=== PATIENT | female | born 1965 | race Two or more races ===

== ENCOUNTER 2020-03-17 14:55 | Emergency (ER) | payer MEDICARE, OTHER ==
[~2020-03-17] VITALS: Ht 165.1 cm; Wt 63.5 kg
[~2020-03-17 14:55] MED LIST: BACITRACIN ZIN1 EACH TOPIC
[2020-03-17] MEDS ORDERED: BUPROPION XL300 MG ORAL (15:27)
[2020-03-17] MEDS ORDERED: CETIRIZINE HCL10 M1 PO (15:27)
[2020-03-17] MEDS ORDERED: SUDAFED 12-HOU120 MG PO (15:27)
[2020-03-17 15:56] VITALS: BP 142/92
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
[2020-03-17] MEDS ORDERED: Methocarbamol 750mg tab ORAL ONE (16:30)
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
[2020-03-17] MEDS ORDERED: ROBAXIN-500MG ORAL (17:44)
[2020-03-17] MEDS ORDERED: IBUPROFEN600 M1 ORAL (17:44)
[2020-03-17 17:50] VITALS: BP 134/75
--- NOTE | 2020-03-17 17:50 | NUR ---
ED Nurse Note: Pt cleared by health care Provider for discharge. DC instructions/prescription was given and explained to pt and verbalized understanding of teachings. All medical deviecs such as ID band removed. Pt is AAO x4, ambulatory and left with all personal belongings.
== END 2020-03-17 17:50 | disposition home or self-care (01) ==
LOC: EMR 15:33
DX: S16.1XXA Strain of muscle, fascia and tendon at neck level, initial encounter (principal); R51.9 Headache, unspecified; V43.52XA Car driver injured in collision with other type car in traffic accident, initial encounter; Y92.411 Interstate highway as the place of occurrence of the external cause; Z88.2 Allergy status to sulfonamides
CPT/HCPCS: 70450; 72125; 99284